=== PATIENT | female | born 1990 | race Caucasian/White ===

== ENCOUNTER 2016-10-05 18:54 | Emergency (ER) | payer OTHER ==
--- NOTE | 2016-10-05 20:39 | ED Physician Documentation ---
Lower Extremity Injury - HISTORIAN Historian: patient - HPI Stated Complaint: Left Ankle Injury Chief Complaint: Ankle Injury Additional Information: Stepped in a hole on 10/03. Still has pain and swelling. Can't put pressure on heel. Taking ibuprofen 800 mg po BID. - ROS CONST: no problems - PAST HX Past History: other (anxiety; ) Allergies/Adverse Reactions: Allergies Allergy/AdvReac Type Severity Reaction Status Date / Time cephalexin monohydrate Allergy Severe Anaphylaxis Verified 10/05/16 19:40 [From Keflex] Home Medications: Ambulatory Orders Medication Instructions Recorded Buspirone HCl [Buspar] 7.5 mg PO DAILY 10/05/16 - SOCIAL HX Smoking History: non-smoker Alcohol Use: none Drug Use: none - FAMILY HX Family History: no significant history - VITAL SIGNS Vital Signs: Vital Signs Temp Pulse Resp BP Pulse Ox 97.1 F L 86 18 138/88 99 10/05/16 18:55 10/05/16 18:55 10/05/16 18:55 10/05/16 18:55 10/05/16 18:55 - REVIEWED ASSESSMENTS Nursing Assessment Reviewed: Yes Vitals Reviewed: Yes Progress - Progress Progress: Left ankle 3 views Exam: October 05, 2016. Clinical history: Injury with medial left ankle pain. Findings: There is no evidence of acute fracture or dislocation. The tibiotalar alignment is maintained. The visualized bones of the hindfoot are intact. The soft tissues are unremarkable. Impression: No acute osseous abnormality. Electronically signed on Oct 05, 2016 8:57:10 PM NURSING ASSISTANT by: Wilmar Malone ED Results Lab/Radiology - Orders Orders: ED Orders Category Date Time Status Stu Wrap Affected Extremity 1T Care 10/05/16 21:03 Active ANKLE 3 VIEWS OR MORE [RAD] Stat Exams 10/05/16 Taken Lower Extremities Injury Phy - Physical Exam General Appearance: no acute distress Hips: bilateral hip: no evidence of injury Legs: bilateral: normal inspection, no evidence of injury Knees: bilateral: no evidence of injury Ankle: right: normal inspection, no evidence of injury, left: swelling ( laterally), other (DP and PT 2+; no discoloration) Foot: bilateral foot: normal inspection, no evidence of injury Gait: limited by pain Neuro/Vascular/Tendon: no vascular compromise, motor nml, sensation nml Head/ENT: nml inspection Neck/Back: nml inspection Resp/CVS: no resp. distress Discharge Clincal Impression: Left ankle sprain Qualifiers: Encounter type: initial encounter Involved ligament of ankle: unspecified ligament Qualified Code(s): S93.402A - Sprain of unspecified ligament of left ankle, initial encounter Referrals: Kit De La Cruz MD [Primary Care Provider] - 2 Days Additional Instructions: Ice to the sore area for twenty minutes several times a day for a week. Continue the ibuprofen. Elevate the left foot as musch as possible for a week. Home Medications: Ambulatory Orders Buspirone HCl [Buspar] 7.5 mg PO DAILY 10/05/16 Condition: Good Disposition: 01 HOME, SELF-CARE Decision to Admit: NO Decision Time: 21:00
[2016-10-05 21:10] VITALS: BP 124/68
--- NOTE | 2016-10-06 02:05 | Diagnostic Imaging Report ---
Report Submission Date: Oct 05, 2016 8:57:10 PM DIRECTOR AIRPORT Patient ~ Study Name: VERO PETERSON ~ Date: Oct 05, 2016 8:44:00 PM DIRECTOR AIRPORT ~ Modality Type: CR Gender: F ~ Description: LOWER EXTREMITY : 89 ~ Institution: [facility] Physician: FELISHA ADDISON ~ ~ ~ ~ Left ankle 3 views Exam: October 05, 2016. Clinical history: Injury with medial left ankle pain. Findings: There is no evidence of acute fracture or dislocation. The tibiotalar alignment is maintained. The visualized bones of the hindfoot are intact. The soft tissues are unremarkable. Impression: No acute osseous abnormality. ~ Electronically signed on Oct 05, 2016 8:57:10 PM DIRECTOR AIRPORT by: Wilmar PEREYRA
== END 2016-10-05 21:08 | disposition home or self-care (01) ==
LOC: ED 18:54
DX: S93.402A Sprain of unspecified ligament of left ankle, initial encounter (principal); W19.XXXA Unspecified fall, initial encounter; Y93.9 Activity, unspecified; Y99.9 Unspecified external cause status
CPT/HCPCS: 73610; 99282; 99283